=== PATIENT | male | born 1990 | race Caucasian/White ===

== ENCOUNTER → 2024-03-27 08:53 | Outpatient (REF) | payer OTHER, SELFPAY | LOC: HWRAD 08:53 | PROVIDERS: ATTENDING PHYSICIAN Specialist; FAMILY PHYSICIAN Family Medicine | DX: N39.0 Urinary tract infection, site not specified (principal) | CPT/HCPCS: 74176 ==

== ENCOUNTER 2024-09-21 06:18 | Day surgery (SDC) | payer OTHER, SELFPAY ==
[2024-09-21] VITALS (7 sets, daily range): BP systolic 102–119; BP diastolic 59–74; BMI 12.8
== END 2024-09-21 11:15 | disposition home or self-care (01) ==
LOC: SDS 06:18
PROVIDERS: ATTENDING PHYSICIAN Specialist
DX: N20.0 Calculus of kidney (principal); N39.0 Urinary tract infection, site not specified
CPT/HCPCS: 52356; 74018; 76000; 82365; 87077; 87086; 87186; C1726; C1758; C2617; J1580

== ENCOUNTER 2024-10-24 06:13 | Day surgery (SDC) | payer OTHER, SELFPAY ==
[2024-10-24] VITALS (7 sets, daily range): BP systolic 98–123; BP diastolic 61–85; BMI 14.4
[2024-10-24] MEDS: NORMOSOL-R/PLASMALYTE-A 1000 IV (10:53)
--- NOTE | 2024-10-24 14:02 | PTCARENOTE ---
Pateint arrival to PACU. Attempted to connect to tele but unable to. Interference present from DBS. Attempted to change monitor, cords, leads. Unable to visualize. Dr. Dash made aware
== END 2024-10-24 15:10 | disposition home or self-care (01) ==
LOC: SDS 06:13
PROVIDERS: ATTENDING PHYSICIAN Specialist
DX: N20.0 Calculus of kidney (principal); N39.0 Urinary tract infection, site not specified
CPT/HCPCS: 52356; 74018; 76000; C2617; J1580